=== PATIENT | male | born 1995 ===

== ENCOUNTER → 2020-04-27 | Outpatient (REF) | payer SELFPAY ==
[2020-04-27 19:08] LABS: CHLAMYDIA DNA AMPLIFICATION NEGATIVE (NEGATIVE); GC DNA AMPLIFICATION NEGATIVE (NEGATIVE)
== END ==
LOC: M LAB REF 16:33
PROVIDERS: ATTEND Physician Assistant
DX: Z11.3 Encounter for screening for infections with a predominantly sexual mode of transmission (principal)